=== PATIENT | female | born 1955 | race Caucasian/White ===

== ENCOUNTER → 2016-04-08 | Day surgery (SDC) | payer OTHER ==
[2016-03-26 12:04] VITALS: Ht 170.2 cm; Wt 81.8 kg
[~2016-04-08] VITALS: Ht 170.2 cm; Wt 81.8 kg
[~2016-04-08] MED LIST: 500ML BSS 0.3ML EPI 1:1000PF IRRIG ONE; ACETAMINOPHEN 325 MG TAB PO PRN; AMIT25TA9 PO; AMVISC PLUS 0.8ML SYRINGE INT OCU ONE; ATROPINE SULFATE 0.1 MG/ML 5ML SYR IV PRN; BETAXOLOL HCL 0.25% OP SUSP PER DROP CHARGE OPL SCH; BRIMONIDINE TART 0.2% OP SOLN PER DROP CHARGE ONE; BSS FLUSH ONE; CALC-51 PO; COLE625T PO; CONJ0.3T3 PO; CRAN1CAP15 PO; DOXE10CA PO; ENDOCOAT 0.85ML SYRINGE INT OCU ONE; EpINEphrine INJ 1MG/ML AMP 1 MG/ML AMP ONE; FENTANYL CITRATE INJ 50 MCG/1 ML 2 ML VIAL ONE; GABA1CAP PO; IBUP-1050 PO; LACTATED RINGER'S 1000ML 500 ML IV SCH; LEVO-14 PO; LIDOCAINE 4% OP SOLN DROP CHARGE ONE; LIDOCAINE 4% OP SOLN DROP CHARGE OPL SCH; LIDOCAINE HCL 1% MPF 2 ML VIAL ONE; MIDAZOLAM HCL 1 MG/ML 2ML VIAL ONE; MIX: 4ML BSS 1ML EPI 1:1000 PF INSTIL ONE; MOXIFLOXACIN OPH SOLN PER DROP CHARGE ONE; NEPA0.6D; OCUCOAT 1 ML SOLN IO ONE; OFLO0.3S OP; PANT40TA PO; POVIDONE-IODINE OP SOLN 30 ML BTL ONE; PRED1SUS3 OPL; PROPARACAINE 0.5% OP SOLN PER DROP CHARGE OPL SCH; SODI5SOL4 OPB; TOBRAMYCIN/DEXAMETHASONE OPH OINT PER APPLN CHARGE ONE; VITAMIN D PO
--- NOTE | 2016-04-08 09:28 | History & Physical Bridge - [place] ---
H&P Re-Evaluation Bridge Note: I have examined the patient, reviewed the History & Physical and in the interval since the performance of the History & Physical I have noted the following changes of clinical significance: No changes noted
[2016-04-08] MEDS: PHENYLEPHRINE HCL 2.5% OP SOLN PER DROP CHARGE OPL SCH ×2 (10:49→10:54)
[2016-04-08] MEDS: TROPICAMIDE 1% OP SOLN PER DROP CHARGE OPL SCH ×2 (10:50→10:55)
[2016-04-08] MEDS: CYCLOPENTOLATE HCL 1% OP SOLN PER DROP CHARGE OPL SCH ×2 (10:51→10:56)
[2016-04-08] MEDS: MOXIFLOXACIN OPH SOLN PER DROP CHARGE OPL SCH ×2 (10:52→11:02)
--- NOTE | 2016-04-08 11:26 | Discharge Instructions-SurgCtr ---
Discharge Instructions Visit Reason for Visit: Cataract Left Eye Discharge Discharge Diagnosis / Problem: lens implant left eye Discharge Goals Goal(s): Improve function Activity Recommendations Activity Limitations: resume your previous activity Lifting Limitations: no more than 10 pounds Exercise/Sports Limitations: gradually increase as tolerated May Resume Sexual Activity: when tolerated Shower/Bathe: tomorrow Driving or Machine Use: resume 1 day after discharge Anesthesia . Post Anesthesia Instructions: If you have had General Anesthesia or IV Sedation: * Do not drive today. * Resume driving when surgeon permits. * Do not make important decisions or sign legal documents today. * Call surgeon for: 1. Temperature elevations greater than 101 degrees F. 2. Uncontrollable pain. 3. Excessive bleeding. 4. Persistent nausea and vomiting. 5. Medication intolerance (nausea, vomiting or rash). * For nausea and vomiting use only clear liquids such as: tea, soda, bouillon until nausea subsides, then gradually increase diet as tolerated. * If you have any concerns or questions, call your surgeon's office. If physician is unavailable and it is an emergency, call 911 or go to the nearest emergency room. . Instructions / Follow-Up Instructions / Follow-Up ACTIVITY RECOMMENDATIONS: * Light activities. * Mild irritation and blurred vision are common for the first few days. * You may walk outside, read, watch television. * Redness around the white part of the eye is common. MEDICATIONS: Resume previous medications unless instructed otherwise by your surgeon. Start all eye drops at 3 pm today: * Eye drops (today and tomorrow): Prednisone - one drop in operative eye every 3 hours while awake Ofloxacin - one drop in operative eye every 3 hours while awake Ilevro - one drop in operative eye once a day SPECIAL CARE INSTRUCTIONS: * Tape plastic shield over eye to sleep at night. Call your doctor at with any concerns or problems. FOLLOW UP VISIT: Follow-up with Dr Gibson at [place] office as scheduled. Diet Recommendations Home Diet: no limitations Procedures Procedures Performed: Cataract Extraction with Lens Implant Pending Studies Studies pending at discharge: no Medical Emergencies . Who to Call and When: Medical Emergencies: If at any time you feel your situation is an emergency, please call 911 immediately. . Non-Emergent Contact Non-Emergency issues call your: Sales And Marketing Agent Call Non-Emergent contact if: your pain is not controlled [phone] . . "Provider Documentation" section prepared by Dinesh Gibson.
--- NOTE | 2016-04-08 11:28 | [facility] Operative Report ---
Operative Report 1. PREOPERATIVE DIAGNOSIS: Pre Senile nuclear cataract, left eye. 2. POSTOPERATIVE DIAGNOSIS: Pre Senile nuclear cataract, left eye. 3. PROCEDURE: Phacoemulsification of left cataract with posterior chamber lens implant, type [employer], model MX60, power +19.5 diopters. ANESTHESIA: Local standby. SURGEON: Dr. Gibson. COMPLICATIONS: None. OPERATING TIME: 10 minutes. 4. OPERATION AND FINDINGS: DESCRIPTION OF PROCEDURE: The left pupil was dilated. The anesthetic was administered using a topical technique. The left eye was prepped and draped. A speculum was placed. A clear corneal incision was formed. The chamber was filled with Amvisc Plus and Endocoat. Epinephrine solution was used. A paracentesis was placed. A capsulorrhexis was performed. The nucleus was hydrodissected. The lens was removed with phacoemulsification. Time was 9.25 seconds. The aspiration unit was used to remove the cortex. The capsule was filled with Amvisc Plus. The lens implant was folded and placed into the capsule. The incision was hydrated. The Amvisc was aspirated. The wound was secure. The chamber was deep. The pupil was round. TobraDex ointment and Vigamox solution were placed. The speculum was removed. The patient was returned to the Recovery Room in stable condition. I attest to the content of the Intraoperative Record and any orders documented therein. Any exceptions are noted below. The scribe's documentation has been prepared in my presence, under my direction and personally reviewed by me in its entirety. I confirm that the note above accurately reflects all work, treatment, procedures, and medical decision making performed by me. I personally scribed for Dinesh Gibson M.D. ([email or web address]) on 04/08/16 at 11:28. Electronically submitted by Marybeth Wolf ([facility]).
[2016-04-08 11:33] VITALS: TEMP 37
--- NOTE | 2016-04-08 11:35 | Anesthesia Progress Nt - [facility] ---
Anesthesia Post Op Note Date & Time Apr 08, 2016 at 11:36 Vital Signs Pain Intensity: 0 Vital Signs Past 12 Hours Date Time Temp Pulse Resp B/P Pulse Ox O2 Delivery O2 Flow Rate FiO2 04/08/16 10:41 36.5 94 18 134/74 97 Room Air Notes Mental Status: alert / awake / arousable, participated in evaluation Pt Amnestic to Procedure: Yes Nausea / Vomiting: adequately controlled Pain: adequately controlled Airway Patency, RR, SpO2: stable & adequate BP & HR: stable & adequate Hydration State: stable & adequate Anesthetic Complications: no major complications apparent
[2016-04-08 11:54] VITALS: BP 107/64; PULSE 86; O2SAT 95
== END | disposition home or self-care (01) ==
LOC: X.SURG 10:30
PROVIDERS: ATTEND Specialist
DX: H25.12 Age-related nuclear cataract, left eye (principal); Z88.2 Allergy status to sulfonamides; Z88.8 Allergy status to other drugs, medicaments and biological substances; Z91.041 Radiographic dye allergy status

== ENCOUNTER 2018-04-04 09:26 | Inpatient (IN) ==
--- NOTE | 2018-04-01 13:31 | Anesthesiology Consultation ---
Date of Service April 01, 2018 Assessment & Plan (1) Encounter for pre-operative examination: Plan: Patient was R/S due to insurance change (initially scheduled for 03/04/18) Chart Review Chart Review: Acceptable Risk for Surgery, Patient NOT seen in Pre Admission Testing and Patient seen in Pre Admission Testing (on 02/07/18) History Surgery Operation Date: 04/04/18 11:25 Proposed Procedures p L2-L3 Decompression / Fusion, Possible L1-L2, L3-L4 Hardware Removal - Paulo Glynn, Height/Weight Height: 5 ft 7 in Weight: 85.729 kg Allergies Allergy/AdvReac Type Severity Reaction Status Date / Time nystatin Allergy Intermediate HIVES Verified 04/04/18 10:10 Sulfa (Sulfonamide Allergy Intermediate HIVES Verified 04/04/18 10:10 Antibiotics) alendronate sodium Allergy Mild ITCHING, Verified 04/04/18 10:10 [From Fosamax] HIVES AND LEG PAIN Iodinated Contrast- Oral and Allergy Unknown HIVES Verified 04/04/18 10:10 IV Dye lactose AdvReac Intermediate GI SYMPTOMS Verified 04/04/18 10:10 Medications Home Medications Medication Instructions Recorded Confirmed Last Taken amitriptyline 1.5 tab PO HS 02/01/18 04/04/18 04/03/18 21:00 calcium carbonate [Calcium 500] 500 mg PO BID 02/01/18 04/04/18 04/03/18 14:00 cholecalciferol (vitamin D3) 500 unit PO QAM 02/01/18 04/04/18 04/03/18 14:00 [Vitamin D3] colesevelam [WelChol] 1,250 mg PO QPM 02/01/18 04/04/18 04/02/18 18:00 colesevelam [WelChol] 625 mg PO QAM 02/01/18 04/04/18 04/03/18 08:00 conjugated estrogens [Premarin] 0.3 mg PO Q2D 02/01/18 04/04/18 04/03/18 08:00 cranberry 400 mg PO QPM 02/01/18 04/04/18 04/02/18 18:00 cyclobenzaprine 5 mg PO TID PRN 02/01/18 04/04/18 Unknown gabapentin 200 mg PO 1200 02/01/18 04/04/18 04/03/18 12:00 gabapentin 300 mg PO BID 02/01/18 04/04/18 04/03/18 18:00 ibuprofen 400 mg PO QID PRN 02/01/18 04/04/18 Unknown montelukast [Singulair] 10 mg PO PM 02/01/18 04/04/18 04/03/18 12:00 pantoprazole 40 mg PO QAM 02/01/18 04/04/18 04/03/18 08:00 Active Medications Generic Name Dose Route Start Last Admin Trade Name Lmq PRN Reason Stop Dose Admin Lactated Ringer's 1,000 mls @ 15 mls/hr 04/04/18 06:00 04/04/18 10:41 Lr IV 04/05/18 05:59 15 mls/hr .Q24H DOMENIC Administration Past Medical History Medical History Barretts esophagus Chronic back pain Degenerative disc disease GERD (gastroesophageal reflux disease) Hiatal hernia Nausea and vomiting after administration of anesthetic agent Osteoarthritis Past Surgical History Surgical History Fusion of spine LUMBAR History of cholecystectomy History of esophagogastroduodenoscopy (EGD) History of laparoscopy LEFT SALPINGO-OOPHRECTOMY, RT OVARY PARTIALLY REMOVED. History of mandibular surgery REPAIR OF "UNDERBITE" History of surgery SHOULDER, BURSA SAC REMOVED History of surgery RT WRIST, CARPECTOMY Past Anesthesia History No Family Hx of Anesthesia Complications PT STATES SHE FEELS THAT EVERY TIME SHE WAKES FROM ANESTHESIA THAT SHE FEELS LIKE SHE IS SUFFOCATING AND CAN'T/ CATCH HER BREATH. NO ISSUES NOTED ON 2016 LUMBAR SURGERY ANESTHESIA RECORD. MAC 3, ETT 7.0, VITAL SIGNS STABLE IN PACU. History of PONV No (mild nausea only) Motion Sickness Screening History of Motion Sickness: Yes Social History Smoking Status: Never smoker Hx Alcohol Use: No Hx Substance Use: No substance use type: does not use Physical Exam Vital Signs Last Vital Signs Temp 36.8 C 04/04/18 10:16 Pulse 94 H 04/04/18 10:16 Resp 20 04/04/18 10:16 BP 119/68 04/04/18 10:16 Pulse Ox 98 04/04/18 10:16 ENMT Mouth: + dental restorations (cement "brace" behind bottom front teeth); no chipped teeth and no loose teeth Thyromental Distance: > or= 3.5 Finger Breadths (4) Mallampati Class: III Neck normal visual inspection; neck extension not limited Respiratory normal respiratory effort Auscultation: lungs clear to auscultation bilaterally Cardiovascular Rate/Rhythm: regular rate and regular rhythm Heart Sounds: no murmur Vessels: no carotid bruit Testing Electrocardiogram Date: 02/07/18 Findings: + NSR @ (78) Low voltage QRS. Cannot r/o anterior infarct (cited on or before 02/07/16). Compared to 2016 EKG, questionable change in initial forces of lateral leads. Chest X-Ray Date: 02/07/18 Findings: + NAD Stress Test Date: 09/24/16 Type: DSE Resting EF: 55-59% The examination is adequate to the referral indication. The LV cavity size, wall thickness and wall motion are normal. LV diastolic function is mildly abnormal (Grade I) No symptoms reported. The stress EKG showed no evidence of ischemia. The DSE is normal without resting LVWM abnormalities or inducible ischemia. Laboratory Results Blood Type A Positive 04/04/18 09:50 Antibody Screen NEGATIVE 04/04/18 09:50 Laboratory Tests 02/07/18 02/07/18 02/07/18 12:33 12:33 13:13 WBC 4.38 L Hgb 14.3 Hct 42.2 Plt Count 192 PT 10.0 INR 1.0 APTT 26.4 Sodium 140 Potassium 4.0 Chloride 107 Carbon Dioxide 25 BUN 10 Creatinine 0.75 Glucose 94
[~2018-04-04 09:26] MED LIST changes: -500ML BSS 0.3ML EPI 1:1000PF IRRIG ONE; -ACETAMINOPHEN 325 MG TAB PO PRN; -AMIT25TA9 PO; -AMVISC PLUS 0.8ML SYRINGE INT OCU ONE; -ATROPINE SULFATE 0.1 MG/ML 5ML SYR IV PRN; -BETAXOLOL HCL 0.25% OP SUSP PER DROP CHARGE OPL SCH; -BRIMONIDINE TART 0.2% OP SOLN PER DROP CHARGE ONE; -BSS FLUSH ONE; -CALC-51 PO; +CEFAZOLIN 2000MG 2,000 MG/15 ML SYR IV SCH; -COLE625T PO; -CONJ0.3T3 PO; -CRAN1CAP15 PO; -DOXE10CA PO; -ENDOCOAT 0.85ML SYRINGE INT OCU ONE; -EpINEphrine INJ 1MG/ML AMP 1 MG/ML AMP ONE; -FENTANYL CITRATE INJ 50 MCG/1 ML 2 ML VIAL ONE; -GABA1CAP PO; -IBUP-1050 PO; -LACTATED RINGER'S 1000ML 500 ML IV SCH; -LEVO-14 PO; -LIDOCAINE 4% OP SOLN DROP CHARGE ONE; -LIDOCAINE 4% OP SOLN DROP CHARGE OPL SCH; -LIDOCAINE HCL 1% MPF 2 ML VIAL ONE; +LR 15ML/HR IV SCH; -MIDAZOLAM HCL 1 MG/ML 2ML VIAL ONE; -MIX: 4ML BSS 1ML EPI 1:1000 PF INSTIL ONE; -MOXIFLOXACIN OPH SOLN PER DROP CHARGE ONE; -NEPA0.6D; -OCUCOAT 1 ML SOLN IO ONE; -OFLO0.3S OP; -PANT40TA PO; -POVIDONE-IODINE OP SOLN 30 ML BTL ONE; -PRED1SUS3 OPL; -PROPARACAINE 0.5% OP SOLN PER DROP CHARGE OPL SCH; -SODI5SOL4 OPB; -TOBRAMYCIN/DEXAMETHASONE OPH OINT PER APPLN CHARGE ONE; -VITAMIN D PO
[2018-04-04] MEDS ORDERED: ONDANSETRON INJ 2 MG/ML 2 ML VIAL IV PRN ×2 (14:23→18:45)
[2018-04-04] MEDS ORDERED: ePHEDrine sulfate 50 MG/ML AMP IV PRN (14:23)
[2018-04-04] MEDS ORDERED: PROMETHAZINE HCL 6.25 MG in SODIUM CHLORIDE 0.9% 50 ML IV PRN (14:23)
[2018-04-04] MEDS ORDERED: ATROPINE SULFATE 0.1 MG/ML 10ML SYR IV PRN (14:23)
[2018-04-04] MEDS ORDERED: HYDROmorphone INJ 2 MG/ML SYR/VIAL IV PRN (14:23)
[2018-04-04] MEDS ORDERED: HYDROmorphone INJ 2 MG/ML SYR/VIAL ONE (14:38)
[2018-04-04] MEDS ORDERED: fentaNYL citrate 100 MCG/2 ML VIAL ONE (14:38)
[2018-04-04] MEDS ORDERED: MIDAZOLAM HCL 1 MG/ML 2ML VIAL ONE (14:38)
--- NOTE | 2018-04-04 14:57 | History & Physical Bridge Note ---
Date of Service April 04, 2018 History & Physical Bridge Note I have examined the patient, reviewed the History & Physical and in the interval since the performance of the History & Physical I have noted the following changes of clinical significance: no changes noted
--- NOTE | 2018-04-04 14:58 | History & Physical Report ---
Date of Service April 04, 2018 Assessment & Plan (1) Lumbar stenosis with neurogenic claudication: Removal of instrumentation L3-4 lumbar decompression and fusion L2-3 possible L1 -2 Present on Admission?: Yes History of Present Illness Chief Complaint: Back and leg pain Primary Care Provider: Esvin Ledbetter This is a 62-year-old female well-known to me that presents with chronic persistent back and leg pain. After failing extensive course of nonoperative care is here for surgical intervention. Allergies Allergy/AdvReac Type Severity Reaction Status Date / Time nystatin Allergy Intermediate HIVES Verified 04/04/18 10:10 Sulfa (Sulfonamide Allergy Intermediate HIVES Verified 04/04/18 10:10 Antibiotics) alendronate sodium Allergy Mild ITCHING, Verified 04/04/18 10:10 [From Fosamax] HIVES AND LEG PAIN Iodinated Contrast- Oral and Allergy Unknown HIVES Verified 04/04/18 10:10 IV Dye lactose AdvReac Intermediate GI SYMPTOMS Verified 04/04/18 10:10 Home Medications Home Medications Medication Instructions Recorded Confirmed Type amitriptyline 1.5 tab PO HS 02/01/18 04/04/18 History calcium carbonate [Calcium 500] 500 mg PO BID 02/01/18 04/04/18 History cholecalciferol (vitamin D3) 500 unit PO QAM 02/01/18 04/04/18 History [Vitamin D3] colesevelam [WelChol] 1,250 mg PO QPM 02/01/18 04/04/18 History colesevelam [WelChol] 625 mg PO QAM 02/01/18 04/04/18 History conjugated estrogens [Premarin] 0.3 mg PO Q2D 02/01/18 04/04/18 History cranberry 400 mg PO QPM 02/01/18 04/04/18 History cyclobenzaprine 5 mg PO TID PRN 02/01/18 04/04/18 History gabapentin 200 mg PO 1200 02/01/18 04/04/18 History gabapentin 300 mg PO BID 02/01/18 04/04/18 History ibuprofen 400 mg PO QID PRN 02/01/18 04/04/18 History montelukast [Singulair] 10 mg PO PM 02/01/18 04/04/18 History pantoprazole 40 mg PO QAM 02/01/18 04/04/18 History Past Med/Surg History Medical History Barretts esophagus Chronic back pain Degenerative disc disease GERD (gastroesophageal reflux disease) Hiatal hernia Nausea and vomiting after administration of anesthetic agent Osteoarthritis Surgical History Fusion of spine LUMBAR History of cholecystectomy History of esophagogastroduodenoscopy (EGD) History of laparoscopy LEFT SALPINGO-OOPHRECTOMY, RT OVARY PARTIALLY REMOVED. History of mandibular surgery REPAIR OF "UNDERBITE" History of surgery SHOULDER, BURSA SAC REMOVED History of surgery RT WRIST, CARPECTOMY Social History Current Living Situation: Spouse Other Information That Helps Us Care for You: No Feels Safe at Home: Yes Safety Concerns: Feels Safe At This Time Smoking Status: Never smoker Do You Dip or Chew Tobacco: No Second Hand Exposure: No Hx Alcohol Use: No Hx Substance Use: No Beliefs That Will Affect Care: None Preferred Language: Romansh Communication Ability: Effective Seasonal Recruiter Required: No Physical Exam 2 Vital Signs (Past 24 Hours): Last Vital Signs Temp 36.8 C 04/04/18 10:16 Pulse 94 H 04/04/18 10:16 Resp 20 04/04/18 10:16 BP 119/68 04/04/18 10:16 Pulse Ox 98 04/04/18 10:16 Results & Data Medications Administered Lactated Ringer's (Lr) 1,000 mls @ 15 mls/hr IV .Q24H DOMENIC Stop: 04/05/18 05:59 Last Admin: 04/04/18 10:41 Dose: 15 mls/hr
[2018-04-04] MEDS ORDERED: BACITRACIN INJ 50,000 UNIT VIAL ONE (15:10)
[2018-04-04] MEDS ORDERED: BUPIVACAINE/EPINEPHRINE 0.5% MPF 1:200,000 30 ML VIAL ONE (15:10)
[2018-04-04] MEDS ORDERED: ACETAMINOPHEN 500 MG TAB ONE (15:12)
[2018-04-04] MEDS ORDERED: GABAPENTIN 300 MG CAP ONE (15:12)
[2018-04-04] MEDS: GABAPENTIN 300 MG x 2 PO SCH ×2 (15:26→19:36)
[2018-04-04] MEDS: ACETAMINOPHEN 500 MG TAB PO SCH ×2 (15:26→19:36)
[2018-04-04] MEDS ORDERED: NEOSTIGMINE METHYLSULFATE 1 MG/ML 10ML VIAL ONE (16:35)
[2018-04-04] MEDS ORDERED: LIDOCAINE HCL 2% 2 ML VIAL/AMP(20MG/ML) INFIL ONE (16:35)
[2018-04-04] MEDS ORDERED: PROPOFOL IV EMULSION 10 MG/ML 20 ML VIAL IV ONE (16:35)
[2018-04-04] MEDS ORDERED: GLYCOPYRROLATE 0.2 MG/ML VIAL ONE (16:35)
[2018-04-04] MEDS ORDERED: ONDANSETRON INJ 2 MG/ML 2 ML VIAL ONE (16:35)
[2018-04-04] MEDS ORDERED: DEXAMETHASONE SOD INJ 4 MG/ML VIAL ONE (16:35)
[2018-04-04] MEDS ORDERED: ROCURONIUM BROMIDE 10 MG/ML 5 ML VIAL ONE (16:37)
[2018-04-04] MEDS ORDERED: FLOSEAL HEMOSTATIC MATRIX 10ML TOP ONE (16:58)
--- NOTE | 2018-04-04 16:59 | Operative Report ---
Post Operative Report Pre & Post Diagnosis Operation Date: 04/04/18 11:25 Pre-Op Diagnosis: Lumbar Spinal Stenosis with neurogenic claudication Post-Op Diagnosis: Lumbar Spinal Stenosis with neurogenic claudication Procedure Operation Date: 04/04/18 11:25 Actual Procedures #1 removal of posterior his mentation L3-4 per #2 expiration of fusion L3-4 per #3 lumbar decompression medial facetectomies foraminotomies L1-L2 3. #4 posterior spinal fusion L2-3. #5 placement posterior instrumentation L2-3. #6 interbody fusion L2-3. #7 placement of peek cage 11 x 22 mm at L2-3. #8 placement of local autograft in the posterior lateral gutters. #9 placement infuse collagen sponge, mass graft in the posterior lateral gutters and ostial amp in the interbody space. Surgeon Paulo Glynn DO Overhead Crane Inspector Shonna Rivera Estimated Blood Loss 100 Findings Consistent with Post-Op Diagnosis Specimens None Description of Procedure Patient was met with preoperatively case discussed all questions addressed. After informed consent obtained patient was taken to the operative suite underwent intubation and placed in the prone position on the [place]ford table on top of the Darius frame. All bony prominences well-padded eyes inspected to ensure no external pressure placed upon but this point the lumbar spine was prepped and draped in a normal sterile fashion. Sharp dissection with the assistance of Bovie cautery was performed down to and exposing the lamina and transverse processes of L to and instrumentation at L3-L4 bilaterally. Then proceeded move the hardware bilaterally explore the fusion mass noting it to be intact. Then performed a complete laminectomy of L2 partial laminectomy of L2 including medial facetectomies and foraminotomies addressing all stenosis. Pedicle screws were then placed in L2 and L3 bilaterally with the assistance of fluoroscopy and the purposes ricky placed. Through a trans-foraminal portion right complete discectomy was performed in plate coated to subcortical mean bone and a 11 x 22 mm peek cage filled with ostium bone graft tapped in position. Rods were then compressed locked into final position bilaterally. The transverse processes of L2 and L3 burred to subcortical bleeding bone. Infuse collagen sponge mass graft local autograft placed in the posterior gutters. 15 round HANNAH drain inserted. Incision was then closed with 1 Vicryl the fascia to stand for Monocryl for Steri-Strip sterile dressing placed. Patient will continue to PACU stable disc. Please note Shonna Rivera present throughout the entire procedure and all the patient positioning complex portions of the surgeon final skin closure. I attest to the content of the Intraoperative Record and any orders documented therein. Any exceptions are noted below.
--- NOTE | 2018-04-04 17:23 | Fluoroscopy Report ---
FL lumbar spine 2-3V CLINICAL HISTORY: 62 years-old Female presenting with L2-L3 DECOMPRESSION/FUSION L1-L4. TECHNIQUE: 2 fluoroscopic image(s) recorded as part of an intraoperative procedure. COMPARISON: 02/10/2016. FINDINGS/IMPRESSION: Posterior bilateral transpedicular screw and ricky fixation of L2-3. Interbody spacers at L2-3 and L3-4 . Laminectomy defects may be present. Please see surgical report for further details. Fluoroscopy dosage (mGy): 8.08. Fluoroscopy time: 14.9 seconds. Number or time of fluoroscopic spot images: 0. Electronically signed by: Paxton Stevens M.D. 04/04/2018 5:21 PM
[2018-04-04] MEDS: fentaNYL citrate 100 MCG/2 ML VIAL IV PRN ×2 (17:36→17:43)
--- NOTE | 2018-04-04 18:09 | Anesthesiology Progress Note ---
Date of Service April 04, 2018 Anesthesia Post Procedure Vital Signs Vital Signs: Temp Pulse Pulse Resp BP Pulse Ox 04/04/18 18:01 65 12 116/56 L 98 04/04/18 17:50 70 12 134/64 98 04/04/18 17:40 62 16 116/72 96 04/04/18 17:30 96 H 18 123/72 99 04/04/18 17:16 97.3 F L 96 H 18 134/73 99 04/04/18 10:16 98.2 F 94 H 20 119/68 98 Pain Intensity Right Leg: Pain Intensity: 3 Lower Back: Pain Intensity: 7 Notes Mental Status: alert / awake / arousable and participated in evaluation Patient Amnestic to Procedure: Yes Nausea / Vomiting: adequately controlled Pain: adequately controlled Airway Patency, RR, SpO2: stable & adequate BP & HR: stable & adequate Hydration State: stable & adequate Anesthetic Complications: no major complications apparent and Pt Satisfied with anesthetic care
[2018-04-04] MEDS ORDERED: MAGNESIUM HYDROXIDE SUSP 30 ML UDC PO PRN (18:45)
[2018-04-04] MEDS ORDERED: ACETAMINOPHEN 500 MG TAB PO PRN (18:45)
[2018-04-04] MEDS ORDERED: DO NOT ADMINISTER PNEUMOCOCCAL VACCINE PRN (18:45)
[2018-04-04] MEDS ORDERED: METOCLOPRAMIDE HCL INJ 5 MG/ML 2 ML VIAL IV PRN (18:45)
[2018-04-04] MEDS ORDERED: DO NOT ADMINISTER FLU VACCINE PRN (18:45)
[2018-04-04] MEDS ORDERED: HYDROmorphone INJ 0.5 MG/0.5 ML SYR IV PRN (18:45)
[2018-04-04] MEDS ORDERED: FAMOTIDINE 20 MG TAB PO PRN (18:45)
[2018-04-04] MEDS ORDERED: LORazepam 0.5 MG/1 ML VIAL IV PRN (18:45)
[2018-04-04] MEDS ORDERED: LORazepam 0.5 MG TAB PO PRN (18:45)
[2018-04-04] MEDS ORDERED: CYCLOBENZAPRINE HCL 5 MG TAB PO PRN (18:45)
[2018-04-04] MEDS ORDERED: PROMETHAZINE HCL 12.5 MG in SODIUM CHLORIDE 0.9% 50 ML IV PRN (18:45)
[2018-04-04] MEDS ORDERED: ALUMINUM/MAGNESIUM SUSP 30 ML UDC PO PRN (18:45)
[2018-04-04] MEDS ORDERED: ONDANSETRON 4 MG TAB PO PRN (18:45)
[2018-04-04] MEDS ORDERED: BISACODYL 10 MG SUPP PR PRN (18:45)
[2018-04-04] MEDS ORDERED: ACETAMINOPHEN 1,000 MG/100 ML VIAL IV PRN (18:45)
[2018-04-04] MEDS ORDERED: SOD PHOSPHATE/SOD BIPHOSPHATE ENEMA 132 ML BTL PR PRN (18:45)
[2018-04-04] MEDS: KETOROLAC TROMETHAMINE 15 MG/ML VIAL IV SCH (19:44)
[2018-04-04] MEDS: LACTATED RINGER'S 1,000 ML IV SCH (19:44)
--- NOTE | 2018-04-04 19:48 | Hospitalist Consultation ---
Date of Consultation April 04, 2018 Assessment & Plan (1) Lumbar stenosis with neurogenic claudication: - POD#0; S/P L3-L4 removal of instrumentation, L1-L2, L2-L3 decompression fusion by Dr. Glynn - activity and wound care orders as per ortho - pain control with bowel regimen - PT/OT - monitor H/H for acute blood loss anemia and transfuse blood products PRN - EBL 100 cc - Patient reporting some mild shortness of breath however reports is chronic for her postoperatively; does not appear to be in respiratory distress and lungs are clear on examination, saturating well on 2 L of oxygen; continue to monitor (2) Chronic back pain: -Postoperative pain control as per spine orthopedics -Continue home doses of amitriptyline and gabapentin (3) Barretts esophagus: -Continue PPI (4) Hypercholesterolemia: -Continue WelChol (5) DVT prophylaxis: -Teds/SCDs as per spine orthopedics Thank you for this consultation. We will follow the patient with you during their hospital stay. You can reach a [facility] via pager @ . Supervising Physician Co-Signing Physician Notes Agree with above consult note. Briefly 62F is s/p back surgery. Tolerated procedure ok. Was sob and nauseous earlier but improved now. No chest pain. Afebrile. Resting comfortably. 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 Glynn Attending Physician: Dr. Daniel History of Present Illness 62-year-old female who is status post back surgery today with Dr. Glynn. Postoperatively the patient is experiencing some incisional pain however reports it is controlled. She reports some mild shortness of breath however denies chest pain. Reports she usually has some shortness of breath after surgery. She does not appear to be in respiratory distress and is saturating well on 2 L nasal cannula. She reports nausea however is feeling hungry. She denies abdominal pain. She reports mild right lower extremity numbness and tingling which is unchanged from baseline. She is mildly dizzy but denies any lightheadedness. Del Cid catheter is in place draining clear yellow urine. Allergies Allergy/AdvReac Type Severity Reaction Status Date / Time nystatin Allergy Intermediate HIVES Verified 04/04/18 10:10 Sulfa (Sulfonamide Allergy Intermediate HIVES Verified 04/04/18 10:10 Antibiotics) alendronate sodium Allergy Mild ITCHING, Verified 04/04/18 10:10 [From Fosamax] HIVES AND LEG PAIN Iodinated Contrast- Oral and Allergy Unknown HIVES Verified 04/04/18 10:10 IV Dye lactose AdvReac Intermediate GI SYMPTOMS Verified 04/04/18 10:10 Home Medications Home Medications Medication Instructions Recorded Confirmed Type amitriptyline 1.5 tab PO HS 02/01/18 04/04/18 History calcium carbonate [Calcium 500] 500 mg PO BID 02/01/18 04/04/18 History cholecalciferol (vitamin D3) 500 unit PO QAM 02/01/18 04/04/18 History [Vitamin D3] colesevelam [WelChol] 1,250 mg PO QPM 02/01/18 04/04/18 History colesevelam [WelChol] 625 mg PO QAM 02/01/18 04/04/18 History conjugated estrogens [Premarin] 0.3 mg PO Q2D 02/01/18 04/04/18 History cranberry 400 mg PO QPM 02/01/18 04/04/18 History cyclobenzaprine 5 mg PO TID PRN 02/01/18 04/04/18 History gabapentin 200 mg PO 1200 02/01/18 04/04/18 History gabapentin 300 mg PO BID 02/01/18 04/04/18 History ibuprofen 400 mg PO QID PRN 02/01/18 04/04/18 History montelukast [Singulair] 10 mg PO PM 02/01/18 04/04/18 History pantoprazole 40 mg PO QAM 02/01/18 04/04/18 History hyoscyamine sulfate 0.125 mg SUBLINGUAL QID PRN 04/04/18 04/04/18 History Patient History Medical History Hypercholesterolemia (Chronic) Chronic back pain (Chronic) Eosinophilic esophagitis (Chronic) IBS (irritable bowel syndrome) (Chronic) Barretts esophagus (Chronic) Barretts esophagus (Inactive) Chronic back pain (Inactive) Degenerative disc disease (Inactive) GERD (gastroesophageal reflux disease) (Inactive) Hiatal hernia (Inactive) Nausea and vomiting after administration of anesthetic agent (Inactive) Osteoarthritis (Inactive) Surgical History History of mandibular surgery (Chronic) History of cholecystectomy (Chronic) H/O oophorectomy (Chronic) H/O shoulder surgery (Chronic) History of back surgery (Chronic) Fusion of spine (Inactive) LUMBAR History of cholecystectomy (Inactive) History of esophagogastroduodenoscopy (EGD) (Inactive) History of laparoscopy (Inactive) LEFT SALPINGO-OOPHRECTOMY, RT OVARY PARTIALLY REMOVED. History of mandibular surgery (Inactive) REPAIR OF "UNDERBITE" History of surgery (Inactive) SHOULDER, BURSA SAC REMOVED History of surgery (Inactive) RT WRIST, CARPECTOMY Family History Father Diabetes Mother Diabetes Social History Current Living Situation: Spouse Other Information That Helps Us Care for You: No Feels Safe at Home: Yes Safety Concerns: Feels Safe At This Time Smoking Status: Former smoker Do You Dip or Chew Tobacco: No Second Hand Exposure: No Hx Alcohol Use: No Hx Substance Use: No Beliefs That Will Affect Care: None Preferred Language: Montserratian Communication Ability: Effective Tool And Equipment Rental Clerk Required: No Review of Systems ROS per HPI, all other systems reviewed and negative Physical Exam 2 Vital Signs (Past 24 Hours): Last Vital Signs Temp 36.3 C L 04/04/18 19:16 Pulse 71 04/04/18 19:16 Resp 16 04/04/18 19:16 BP 129/78 04/04/18 19:16 Pulse Ox 96 04/04/18 19:16 Constitutional: WD/WN, vitals as above Eyes: PERRL, conjunctivae normal, anicteric sclerae ENMT: external ear and nose normal, oropharynx normal Respiratory: normal respiratory effort, lungs clear to auscultation Cardiovascular: Rate/Rhythm: regular rate and regular rhythm Vessels: normal peripheral pulses Extremities: no edema Gastrointestinal (Abdomen): normal bowel sounds, soft, nontender, no hepatosplenomegaly Musculoskeletal: S/P back surgery, pedal pushes and pulls strong bilaterally Skin: no rashes, warm and dry Neurologic: PERRL, EOMI, accommodation nl, no face palsy, no dysarthria Psychiatric: A+Ox3, euthymic affect Genitourinary: Del Cid in place draining clear yellow urine
[2018-04-04] MEDS ORDERED: CALCIUM CARBONATE 1250MG TAB PO SCH (21:00)
[2018-04-04] MEDS: AMITRIPTYLINE HCL 25 MG TAB PO SCH (21:11)
[2018-04-04] MEDS: OXYCODONE HCL IR 5 MG TAB (IMMEDIATE RELEASE) PO PRN (21:11)
[2018-04-04] MEDS: CEFAZOLIN 2000MG 2,000 MG/15 ML SYR IV SCH (21:13)
[2018-04-04] MEDS: GABAPENTIN 300 MG CAP PO SCH (21:13)
[2018-04-04] MEDS: MONTELUKAST SODIUM 10 MG TABLET PO SCH (21:13)
[2018-04-04] MEDS: DOCUSATE SODIUM/SENNA 50/8.6MG TAB PO SCH (21:13)
[2018-04-05] MEDS: KETOROLAC TROMETHAMINE 15 MG/ML VIAL IV SCH ×3 (01:26→13:56)
[2018-04-05] MEDS: LACTATED RINGER'S 1,000 ML IV SCH ×2 (01:27→08:38)
[2018-04-05] MEDS: POLYETHYLENE (MIRALAX) 17 GM PACK PO SCH ×4 (05:48→22:35)
[2018-04-05] MEDS: CEFAZOLIN 2000MG 2,000 MG/15 ML SYR IV SCH (05:48)
[2018-04-05] MEDS: OXYCODONE HCL IR 5 MG TAB (IMMEDIATE RELEASE) PO PRN ×2 (05:54→15:44)
[2018-04-05 06:25] LABS: Eosinophils # (auto) 0.01 K/uL (0-0.5); Eosinophils % (auto) 0.1 %; Hematocrit (blood only) 37.4 % (37-47); Hemoglobin 12.7 g/dL (12.0-16.0); Immature Granulocytes # (auto) 0.01 K/uL (0.00-0.02); Immature Granulocytes % (auto) 0.1 %; Lymphocytes % (auto) 6.2 %; Mean Corpuscular Volume 88.8 fL (80-100); Mean Platelet Volume 9.6 fL (7.4-10.4); Monocytes # (auto) 0.43 K/uL (0.11-0.59); Monocytes % (auto) 3.8 %; Neutrophils # (auto) 10.22 K/uL (1.4-6.5); Neutrophils % (auto) 89.8 %; Platelet Count 198 K/uL (130-400); RDW Coefficient of Variation 12.4 % (11.5-14.5); RDW Standard Deviation 39.6 fL (36.4-46.3); Red Blood Count 4.21 M/uL (4.2-5.4); White Blood Count 11.37 K/uL (4.8-10.8)
[2018-04-05 06:58] LABS: BUN Creatinine Ratio 13.4 (10-20); Calcium 8.4 mg/dl (8.5-10.1); Creatinine Clr Calc Pharmacy 86.4 ml/min; Est GFR (African American) 99.2; Est GFR (Non-African American) 85.6
--- NOTE | 2018-04-05 07:59 | Anesthesiology Progress Note ---
Date of Service April 05, 2018 Anesthesia Post Procedure Vital Signs Vital Signs: Temp Pulse Pulse Pulse Resp BP Pulse Ox 04/05/18 07:19 36.6 C 89 18 127/73 93 04/05/18 03:32 36.5 C 101 H 16 98/62 L 94 04/04/18 22:59 36.4 C L 101 H 16 116/71 96 04/04/18 21:47 36.3 C L 96 H 16 105/72 98 04/04/18 21:00 36.5 C 98 H 18 115/73 99 04/04/18 19:47 36.3 C L 88 16 111/67 96 04/04/18 19:16 36.3 C L 71 16 129/78 96 04/04/18 18:46 36.4 C L 71 16 119/53 L 95 04/04/18 18:20 64 12 121/63 98 04/04/18 18:10 36.4 C L 83 12 138/73 98 04/04/18 18:01 65 12 116/56 L 98 04/04/18 17:50 70 12 134/64 98 04/04/18 17:40 62 16 116/72 96 04/04/18 17:30 96 H 18 123/72 99 04/04/18 17:16 36.3 C L 96 H 18 134/73 99 04/04/18 10:16 36.8 C 94 H 20 119/68 98 Pain Intensity Right Leg: Pain Intensity: 1 Lower Back: Pain Intensity: 2 Notes Mental Status: alert / awake / arousable and participated in evaluation Nausea / Vomiting: adequately controlled Pain: adequately controlled Airway Patency, RR, SpO2: stable & adequate BP & HR: stable & adequate Hydration State: stable & adequate Anesthetic Complications: Pt Satisfied with anesthetic care
[2018-04-05] MEDS: TRAMADOL HCL 50 MG TABLET PO PRN ×3 (08:36→22:38)
[2018-04-05] MEDS: PANTOprazole 40 MG TAB PO SCH (08:37)
[2018-04-05] MEDS: CHOLECALCIFEROL (VITAMIN D) 400 UNITS TABLET PO SCH (08:37)
[2018-04-05] MEDS: GABAPENTIN 300 MG CAP PO SCH (08:37)
[2018-04-05] MEDS ORDERED: Nursing to Pharmacy Communication ONE (09:10)
[2018-04-05] MEDS: CALCIUM CARBONATE 1250MG TAB PO SCH ×2 (09:20→20:42)
[2018-04-05] MEDS ORDERED: CALCIUM CARBONATE 500 MG CHEWABLE TAB PO PRN (11:38)
--- NOTE | 2018-04-05 11:38 | Hospitalist Progress Note ---
Date of Service April 05, 2018 Assessment & Plan (1) Lumbar stenosis with neurogenic claudication: - POD#1; S/P L3-L4 removal of instrumentation, L1-L2, L2-L3 decompression fusion by Dr. Glynn - activity and wound care orders as per ortho - pain control with bowel regimen - PT/OT - monitor H/H for acute blood loss anemia and transfuse blood products PRN - EBL 100 cc; HANNAH output 260 cc - Hgb stable at 12.7 (2) Chronic back pain: -Postoperative pain control as per spine orthopedics -Continue home doses of amitriptyline and gabapentin (3) Barretts esophagus: -Continue PPI (4) Hypercholesterolemia: -Continue WelChol (5) DVT prophylaxis: -Teds/SCDs as per spine orthopedics Supervising Physician Co-Signing Physician Notes Attending addendum The patient was seen and examined in medical floor She complains to have some pain in the right knee Denies any other symptoms whatsoever On examination Sitting on a chair without any distress Hemodynamically stable Chest clear to auscultate bilaterally- Heart- regular Abdomen-benign Labs and imaging studies noted Agree with assessment and plan as outlined above by Marybeth Goldstein Subjective Patient seen and examined. Sitting up in the chair. Reports pain is well controlled. Denies chest pain and shortness of breath. No lightheadedness or dizziness. No BM or flatus, denies abdominal pain and nausea. Physical Exam 2 Vital Signs (Past 24 Hours): Last Vital Signs Temp 36.6 C 04/05/18 07:19 Pulse 89 04/05/18 07:19 Resp 18 04/05/18 07:19 BP 127/73 04/05/18 07:19 Pulse Ox 93 04/05/18 07:19 Constitutional: WD/WN, vitals as above Respiratory: normal respiratory effort, lungs clear to auscultation Cardiovascular: Rate/Rhythm: regular rate and regular rhythm Vessels: normal peripheral pulses Extremities: no edema Musculoskeletal: S/P back surgery, pedal pushes and pulls strong bilaterally Psychiatric: Orientation: alert and oriented x 3 Results & Data Laboratory Results Short CBC 04/05/18 Range/Units 06:01 WBC 11.37 H (4.8-10.8) K/uL Hgb 12.7 (12.0-16.0) g/dL Hct 37.4 (37-47) % Plt Count 198 (130-400) K/uL BMP 04/05/18 06:01 Sodium 138 Potassium 4.0 Chloride 105 Carbon Dioxide 27 BUN 10 Creatinine 0.74 Glucose 136 H Calcium 8.4 L
[2018-04-05] MEDS: GABAPENTIN 100 MG CAP PO SCH ×2 (12:21→20:39)
--- NOTE | 2018-04-05 12:36 | Orthopedic Progress Note ---
Date of Service April 05, 2018 Assessment & Plan (1) Lumbar stenosis with neurogenic claudication: This time we will continue physical therapy monitor her HANNAH output anticipate discharge home in the next few days. Present on Admission?: Yes Subjective Back pain is controlled leg symptoms improved. Physical Exam 2 Vital Signs (Past 24 Hours): Last Vital Signs Temp 36.8 C 04/05/18 12:12 Pulse 89 04/05/18 12:12 Resp 18 04/05/18 12:12 BP 107/67 04/05/18 12:12 Pulse Ox 93 04/05/18 12:12 Physical Exam: Patient is sitting in the chair at the bedside is good strength testing. Appears comfortable.
[2018-04-05] MEDS: SIMETHICONE 80 MG CHEW PO PRN (16:37)
[2018-04-05] MEDS: AMITRIPTYLINE HCL 25 MG TAB PO SCH (20:37)
[2018-04-05] MEDS: MONTELUKAST SODIUM 10 MG TABLET PO SCH (20:42)
[2018-04-05] MEDS: DOCUSATE SODIUM/SENNA 50/8.6MG TAB PO SCH (20:42)
[2018-04-06] MEDS: POLYETHYLENE (MIRALAX) 17 GM PACK PO SCH ×3 (05:09→19:02)
[2018-04-06 07:35] LABS: Mean Corpuscular Hgb Conc 33.3 g/dL (32-36); Mean Corpuscular Volume 89.9 fL (80-100); Mean Platelet Volume 9.7 fL (7.4-10.4); Platelet Count 215 K/uL (130-400); RDW Coefficient of Variation 12.7 % (11.5-14.5); RDW Standard Deviation 41.6 fL (36.4-46.3); Red Blood Count 4.34 M/uL (4.2-5.4); White Blood Count 9.22 K/uL (4.8-10.8)
[2018-04-06 08:03] LABS: BUN Creatinine Ratio 14.9 (10-20); Calcium 8.7 mg/dl (8.5-10.1); Est GFR (African American) 94.6; Est GFR (Non-African American) 81.6; Potassium 3.5 mmol/L (3.5-5.1)
[2018-04-06] MEDS: CHOLECALCIFEROL (VITAMIN D) 400 UNITS TABLET PO SCH (08:14)
[2018-04-06] MEDS: PANTOprazole 40 MG TAB PO SCH (08:14)
[2018-04-06] MEDS: CALCIUM CARBONATE 1250MG TAB PO SCH ×2 (08:15→20:41)
[2018-04-06] MEDS: GABAPENTIN 100 MG CAP PO SCH ×3 (08:15→20:41)
[2018-04-06] MEDS: TRAMADOL HCL 50 MG TABLET PO PRN ×2 (11:38→15:29)
[2018-04-06] MEDS: DOCUSATE SODIUM/SENNA 50/8.6MG TAB PO SCH ×2 (12:53→20:39)
--- NOTE | 2018-04-06 14:08 | Hospitalist Progress Note ---
Date of Service April 06, 2018 Assessment & Plan (1) Lumbar stenosis with neurogenic claudication: - POD#2; S/P L3-L4 removal of instrumentation, L1-L2, L2-L3 decompression fusion by Dr. Glynn - activity and wound care orders as per ortho - pain control with bowel regimen - PT/OT - monitor H/H for acute blood loss anemia and transfuse blood products PRN - EBL 100 cc; HANNAH output 260 cc - Hgb stable at 13.0 - Patient reporting constipation today, had suppository this morning. Declining MiraLAX. Will change senna/docusate to twice daily dosing. (2) Chronic back pain: -Postoperative pain control as per spine orthopedics -Continue home doses of amitriptyline and gabapentin (3) Barretts esophagus: -Continue PPI (4) Hypercholesterolemia: -Continue WelChol (5) DVT prophylaxis: -Teds/SCDs as per spine orthopedics Supervising Physician Co-Signing Physician Notes Patient is seen and examined at bedside. Reviewed the chart. Back pain is controlled. Constipation resolved. Had BM today. Denies chest pain, dyspnea, dizziness. No other complaints. On Exam Back: Surgical site in dressing, +drain , lungs CTA, S1, S2, No pedal edema. Continue bowel regimen. Pain control, Wound Management as per Primary Team. Continue PPI for Barretts. I personally reviewed the record. Patient's care is coordinated with Marybeth Flores NP. Please refer to the documentation above for details of patient's presentation and for discussion of other issues. Subjective Patient seen and examined. Reports back pain is well controlled. Ambulating in halls without difficulty. Having some abdominal discomfort from constipation. No flatus. Denies nausea. Denies chest pain shortness of breath. No lightheadedness or dizziness. Physical Exam 2 Vital Signs (Past 24 Hours): Last Vital Signs Temp 36.8 C 04/06/18 06:19 Pulse 84 04/06/18 06:19 Resp 16 04/06/18 06:19 BP 112/74 04/06/18 06:19 Pulse Ox 95 04/06/18 10:04 Constitutional: WD/WN, vitals as above Respiratory: normal respiratory effort, lungs clear to auscultation Cardiovascular: Rate/Rhythm: regular rate and regular rhythm Vessels: normal peripheral pulses Extremities: no edema Gastrointestinal (Abdomen): Inspection/Auscultation: + abnormal bowel sounds ( Sluggish) Percussion/Palpation: abdomen soft; abdomen nontender Musculoskeletal: S/P back surgery, drain in place draining serosanguineous drainage, strength strong and equal in the bilateral lower extremities Psychiatric: Orientation: alert and oriented x 3 Results & Data Laboratory Results Short CBC 04/06/18 Range/Units 07:06 WBC 9.22 (4.8-10.8) K/uL Hgb 13.0 (12.0-16.0) g/dL Hct 39.0 (37-47) % Plt Count 215 (130-400) K/uL [facility] 04/06/18 07:06 Sodium 136 Potassium 3.5 Chloride 103 Carbon Dioxide 27 BUN 12 Creatinine 0.77 Glucose 128 H Calcium 8.7
--- NOTE | 2018-04-06 14:20 | Orthopedic Progress Note ---
Date of Service April 06, 2018 Assessment & Plan (1) Lumbar stenosis with neurogenic claudication: Time we will continue physical therapy. Monitor HANNAH output. Increase her bowel regimen. Anticipate possible home tomorrow. Present on Admission?: Yes Subjective Back pain is controlled leg pain markedly improved. Physical Exam 2 Vital Signs (Past 24 Hours): Last Vital Signs Temp 36.8 C 04/06/18 06:19 Pulse 84 04/06/18 06:19 Resp 16 04/06/18 06:19 BP 112/74 04/06/18 06:19 Pulse Ox 95 04/06/18 10:04 Physical Exam: On exam patient is in the chair at the bedside. She is good strength testing.
[2018-04-06] MEDS: SIMETHICONE 80 MG CHEW PO PRN (16:28)
[2018-04-06] MEDS: MONTELUKAST SODIUM 10 MG TABLET PO SCH (19:00)
[2018-04-06] MEDS: AMITRIPTYLINE HCL 25 MG TAB PO SCH (20:40)
[2018-04-07 06:37] LABS: Hematocrit (blood only) 36.2 % (37-47); Mean Corpuscular Hgb Conc 33.1 g/dL (32-36); Mean Platelet Volume 9.7 fL (7.4-10.4); Platelet Count 181 K/uL (130-400); RDW Coefficient of Variation 12.7 % (11.5-14.5); RDW Standard Deviation 41.8 fL (36.4-46.3); Red Blood Count 4.02 M/uL (4.2-5.4); White Blood Count 6.57 K/uL (4.8-10.8)
[2018-04-07] MEDS: PANTOprazole 40 MG TAB PO SCH (07:15)
[2018-04-07 07:16] LABS: BUN Creatinine Ratio 19.3 (10-20); Calcium 8.7 mg/dl (8.5-10.1); Creatinine Clr Calc Pharmacy 110.2 ml/min; Est GFR (African American) 112.9; Est GFR (Non-African American) 97.4; Potassium 3.7 mmol/L (3.5-5.1)
[2018-04-07] MEDS: TRAMADOL HCL 50 MG TABLET PO PRN (07:28)
[2018-04-07] MEDS: GABAPENTIN 100 MG CAP PO SCH (07:29)
[2018-04-07] MEDS: CALCIUM CARBONATE 1250MG TAB PO SCH (07:29)
[2018-04-07] MEDS: CHOLECALCIFEROL (VITAMIN D) 400 UNITS TABLET PO SCH (07:30)
--- NOTE | 2018-04-07 08:39 | Discharge Summary ---
Date of Service April 07, 2018 Admission HPI Per Admitting Provider This is a 62-year-old female well-known to me that presents with chronic persistent back and leg pain. After failing extensive course of nonoperative care is here for surgical intervention. Principal Diagnosis Lumbar spinal stenosis Discharge Data Allergies Allergy/AdvReac Type Severity Reaction Status Date / Time nystatin Allergy Intermediate HIVES Verified 04/04/18 10:10 Sulfa (Sulfonamide Allergy Intermediate HIVES Verified 04/04/18 10:10 Antibiotics) alendronate sodium Allergy Mild ITCHING, Verified 04/04/18 10:10 [From Fosamax] HIVES AND LEG PAIN Iodinated Contrast- Oral and Allergy Unknown HIVES Verified 04/04/18 10:10 IV Dye lactose AdvReac Intermediate GI SYMPTOMS Verified 04/04/18 10:10 Consultations 04/04/18 18:45 Consult Case Management - Discharge Planning Routine Consult Hospitalist Routine Procedures Performed Operation Date: 04/04/18 11:25 Actual Procedures p L2-L3 Decompression Fusion, Interbody L2-L3, Bone Morphogenetic Protein(Not Applicable) - Paulo Glynn DO s L3-L4 Hardware Removal(Not Applicable) - Paulo Glynn DO Ordered Studies 04/04/18 15:00 FL fluoroscopy <1hr Routine FL lumbar spine 2-3V Routine Hospital Course (1) Lumbar stenosis with neurogenic claudication: Patient underwent lumbar decompression fusion tolerated this well was taken to the orthopedic floor postoperatively. Postop day and when she was up and ambulating nicely. Leg symptoms improved. She progressed to postop day # 2. Postop day #3 bowels working well HANNAH drain decreased appropriately. Subsequent discharge home. Discharge orders and instructions found in the chart for further review. Total Time Total Time Spent Total Time Spent (In Minutes): Not applicable Discharge Plan Discharge Items Patient Disposition: Home - Self-Care Reason For Visit: LUMBAR SPINAL STENOSIS Discharge Diagnosis: lumbar stenosis Discharge Goals: Decrease discomfort Activity: Per 'Additional Instructions' section Non-emergency contact: Primary Care Provider Call non-emergency contact if: you have any medication questions Follow-up/Referrals: Esvin Ledbetter M.D. [Primary Care Provider] - Diet: Regular Addtl Provider Instructions: MANAGING PAIN AFTER SPINAL SURGERY ACTIVITY RECOMMENDATIONS: SELF CARE INSTRUCTIONS AFTER THORACIC/LUMBAR FUSIONS 1. You may walk to your tolerance. It is good exercise for your legs and back. Expect some back and intermittent leg aches and pains. 2. You may perform "counter-top" level activities (make a sandwich, lang with a project, etc.). 3. No bending or lifting of more than 10 pounds or back twisting of any nature (roll like a log when turning in bed). 4. You may ride in a car for 20-30 minutes at a time. No driving until after your first visit with your doctor. 5. Frequent changes of position and restricting sitting to 30 minutes at a time will help limit the amount of back spasms and stiffness you may experience. 6. You may discontinue the use of ambulatory aids (cane, crutches, etc.) once your strength and confidence allow. 7. You may supervisor shaving and splitting the shower and let water strike your incision when you arrive home at least once daily. Do not take a tub bath, sit in a hot tub or go into a swimming pool until after your first recheck in the office. SPECIAL CARE INSTRUCTIONS: VERY IMPORTANT TO READ AND REVIEW A. Your surgical incision has been closed with a cosmetic suture under the skin that will dissolve in about 6 weeks. In 14 days, you can use a pair of clean scissors and cut the suture that is left outside of the skin at the ends of your incision. 1. The small skin tapes can be removed 7 days after surgery if they have not fallen off by that point. 2. You may keep the wound open to air as much as possible to promote healing after post-op day number 5 unless told otherwise by your doctor. 3. If you think the wound looks like it is becoming infected (redness or worsening drainage) and/or you are experiencing fever, chill or worsening back pain and muscle spasms, contact the office so that we may evaluate you as soon as possible. B. Complications are uncommon, but please contact us if you have any signs or symptoms of: 1. wound infection (fever higher than 102.5 degrees F, redness, separation of wound, drainage, or increasing pain from the incision) 2. blood clots in legs (pain, swelling, redness and warmth in legs) 3. urinary tract infection (fever higher than 102.5 degrees F, burning upon urination or increased frequency of urination) 4. nerve problems (inability to walk on your toes or heels, numbness, loss of bowel or bladder control) 5. any other symptoms that concern you C. Please call the office at if you have any concerns or questions about your operation or recovery. D. No smoking! Smoking drastically decreases the chance of a solid fusion. E. Do not take any anti-inflammatory medications (Indocin, Advil, Motrin, Aspirin, Naprosyn, etc.) as these may inhibit the chance of a solid fusion. Tylenol is okay to take for pain. MANAGING PAIN AFTER SPINAL SURGERY 1. Narcotic medication is intended for short-term use and will be provided for surgical pain. Surgical pain usually lasts for a period of 4-6 weeks. Narcotic medication includes Percocet, Vicodin, Darvocet, Tylenol #3 or Lortab. 2. Longer-term pain is more appropriately treated with non-narcotic medication such as Tylenol ES. 3. Muscle spasm is not appropriately treated with narcotics. Muscle relaxers such as Soma, Flexeril or Skelaxin can be used along with Tylenol ES. 4. Remember that we all live with some "aches and pains". This is not unusual or uncommon after an injury or as we get older. a. Back pain is expected and may include muscle spasms for 4 to 6 weeks after surgery. The pain should gradually improve. If the pain worsens for no apparent reason, please contact the office. b. Intermittent leg pain may also be experienced and should not be concerned about unless it worsens for no apparent reason. If so, please contact the office. 5. We will provide appropriate medication within the normal guidelines of their prescribed use. We will also be very cautious and aware of potential abuse and extended duration of patients' medication needs. a. Pain medications are for your comfort and to assist with sleep and rest so that the tissue can heal. They are not provided in order to return to normal activity and should not be used through the day. To do so or worsening pain at night can result from ongoing tissue damage and development of tolerance to the prescribed medicine. 6. Please allow 2-3 days to process refills. Prescriptions will not be mailed but must be picked up at the office. FOLLOW UP VISIT: Keep your scheduled follow-up appointment. Any questions, please call the office at . Prescriptions: New tramadol 50 mg Tablet 50 mg PO Q4H PRN (Reason: Pain, Moderate) Qty: 30 RF: 0 oxycodone 5 mg Tablet 5 mg PO Q4H PRN (Reason: Pain, Severe) Qty: 30 RF: 0 Continue hyoscyamine sulfate 0.125 mg Tablet, Sublingual 0.125 mg SUBLINGUAL QID PRN (Reason: Abdominal Pain) RF: 0 amitriptyline 25 mg Tablet 1.5 tab PO HS RF: 0 calcium carbonate [Calcium 500] 500 mg calcium (1,250 mg) Tablet 500 mg PO BID RF: 0 colesevelam [WelChol] 625 mg Tablet 625 mg PO QAM RF: 0 colesevelam [WelChol] 625 mg Tablet 1,250 mg PO QPM RF: 0 pantoprazole 40 mg Tablet,Delayed Release (Dr/Ec) 40 mg PO QAM RF: 0 cranberry 400 mg Capsule 400 mg PO QPM RF: 0 gabapentin 300 mg Capsule 300 mg PO BID RF: 0 montelukast [Singulair] 10 mg Tablet 10 mg PO PM RF: 0 gabapentin 100 mg Capsule 200 mg PO 1200 RF: 0 conjugated estrogens [Premarin] 0.3 mg Tablet 0.3 mg PO Q2D RF: 0 cyclobenzaprine 5 mg Tablet 5 mg PO TID PRN (Reason: Muscle Spasm) RF: 0 cholecalciferol (vitamin D3) [Vitamin D3] 1,000 unit Tablet 500 unit PO QAM RF: 0 Discontinued ibuprofen 200 mg Tablet 400 mg PO QID PRN (Reason: Pain) RF: 0 Stand-Alone Forms: [facility] Discharge Orders: Discharge Order (Routine); Ordered 04/07/18 Ordered By: Paulo Glynn Admission Data Admit Date/Time: 04/04/18 17:04 Attending Provider: Paulo Glynn Admit Provider: Paulo Glynn Primary Care Provider: Esvin Ledbetter Other Providers: Stanley Ro ; Damien Ortiz Service: Surgical Services
== END 2018-04-07 10:40 | disposition home or self-care (01) | DRG 455 ==
LOC: ASU 09:26 → 3E 17:04